=== PATIENT | female | born 1960 | race Caucasian/White ===

== ENCOUNTER 2018-10-12 20:13 | Emergency (ER) | payer MEDICARE, MEDICAID ==
[~2018-10-12] VITALS: Ht 157.5 cm; Wt 74.8 kg
[~2018-10-12 20:13] MED LIST: AMBIEN 5 MG TABL5 M1 PO; NEURONTIN600 MG PO; PREDNISONE 20 M20 M1 PO; PROMETHAZINE D480 ML PO; TESSALON PERLE100 MG PO; VICODIN ES 7.51 EACH PO; ZANAFLEX4 MG PO; ZPAK PO
[2018-10-12] MEDS ORDERED: SLEEP AID25 MG PO (20:37)
[2018-10-12] MEDS ORDERED: NAPROSYN500 MG PO (21:03)
[2018-10-12] MEDS ORDERED: NORCO 5-325 TA1 EACH PO (21:03)
[2018-10-12 21:14] VITALS: BP 156/80
== END 2018-10-12 21:27 | disposition home or self-care (01) ==
LOC: M.ERS 20:13
DX: M25.571 Pain in right ankle and joints of right foot (principal); F17.210 Nicotine dependence, cigarettes, uncomplicated

== ENCOUNTER 2018-11-23 17:41 | Emergency (ER) | payer MEDICARE, MEDICAID ==
[~2018-11-23] VITALS: Ht 154.9 cm; Wt 72.6 kg
[~2018-11-23 17:41] MED LIST changes: +NAPROSYN500 MG PO; +NORCO 5-325 TA1 EACH PO; +SLEEP AID25 MG PO
[2018-11-23 17:46] VITALS: BP 145/83
[2018-11-23] MEDS ORDERED: PAXIL10 MG PO (17:49)
[2018-11-23] MEDS ORDERED: DELTASONE20 MG PO (17:57)
[2018-11-23] MEDS ORDERED: BENZONATATE200 MG PO (17:57)
[2018-11-23] MEDS ORDERED: IBUPROFEN 800800 M1 PO (17:57)
== END 2018-11-23 18:03 | disposition home or self-care (01) ==
LOC: M.ERS 17:41
DX: J06.9 Acute upper respiratory infection, unspecified (principal); F17.210 Nicotine dependence, cigarettes, uncomplicated